=== PATIENT | female | born 1990 ===

== ENCOUNTER 2017-04-29 18:25 | Emergency (ER) | payer BC ==
[2017-04-29 18:43] VITALS: BP 92/71; PULSE 92; RESP 16; TEMP 99.9; O2SAT 97
[2017-04-29] MEDS ORDERED: Lactated Ringer's 1,000 ML IV STA (19:55)
[2017-04-29] MEDS ORDERED: Dextrose 5%/Lactated Ringer's 1,000 ML IV SCH (20:00)
--- NOTE | 2017-04-29 20:27 | ED PDOC ---
HPI: Abdomen Chief Complaint (Provider): Abdominal Pain History Per: Patient History/Exam Limitations: no limitations Onset/Duration Of Symptoms: Days (Ongoing for 2 days) Current Symptoms Are (Timing): Constant Location Of Pain/Discomfort: Epigastric Quality Of Discomfort: Burning Associated Symptoms: Vomiting. denies: Diarrhea, Constipation <Deisy Rockwell - Last Filed: 04/29/17 22:42> <Juan Miguel Thompson - Last Filed: 05/02/17 10:26> Time Seen by Provider: 04/29/17 19:19 Chief Complaint (Nursing): Abdominal Pain Additional Complaint(s): Patient is a 26 y/o female with no past medical history, complaining of epigastric abdominal pain that has been constant and ongoing for 2 days. Patient describes the pain as a burning sensation and notes pain is non radiating. She also reports associated 4 episodes of non-bilious non-bloody vomiting and inability to tolerate food, but denies diarrhea, constipation, and black or bloody stools. Patient also notes having mild reversion of the pain for the last 3 or 4 months, but that it has never been this bad. She claims she has not taken anything for the pain, and admits to drinking heavily this weekend on an empty stomach. Patient also states that she scheduled an appointment and visited her [employer] [employer], Dr. Owens, earlier today who only prescribed blood work and urine tests. She adds that he told her to follow up with her primary care physician, although she does not have one. PMD: none (Deisy Rockwell) Past Medical History Reviewed: Historical Data, Nursing Documentation, Vital Signs - Medical History PMH: No Chronic Diseases - Surgical History Other surgeries: Bilateral breast reduction - Family History Family History: States: No Known Family Hx - Social History Current smoker - smoking cessation education provided: No Ex-Smoker (has not smoked in the last 12 months): No Alcohol: Social Drugs: Denies <Deisy Rockwell - Last Filed: 04/29/17 22:42> <Juan Miguel Thompson - Last Filed: 05/02/17 10:26> Vital Signs: Last Vital Signs Temp 99.9 F H 04/29/17 18:40 Pulse 92 H 04/29/17 18:40 Resp 16 04/29/17 18:40 BP 92/71 L 04/29/17 18:40 Pulse Ox 97 04/29/17 22:45 - Home Medications Home Medications: Ambulatory Orders Medication Instructions Recorded Dicyclomine [Bentyl] 20 mg PO BID PRN #30 tab 04/29/17 Famotidine [Pepcid] 40 mg PO DAILY #30 tab 04/29/17 Ondansetron ODT [Zofran ODT] 1 odt PO Q6 PRN #20 odt 04/29/17 - Allergies Allergies/Adverse Reactions: Allergies Allergy/AdvReac Type Severity Reaction Status Date / Time No Known Allergies Allergy Verified 04/29/17 18:39 Review of Systems ROS Statement: Except As Marked, All Systems Reviewed And Found Negative Gastrointestinal: Positive for: Vomiting, Abdominal Pain (Epigastric). Negative for: Diarrhea, Constipation, Hematochezia <Deisy Rockwell - Last Filed: 04/29/17 22:42> - Laboratory Results Result Diagrams: 04/29/17 20:33 04/29/17 20:33 - ECG O2 Sat by Pulse Oximetry: 97 (RA) Pulse Ox Interpretation: Normal <Deisy Rockwell - Last Filed: 04/29/17 22:42> - Laboratory Results Result Diagrams: 04/29/17 20:33 04/29/17 20:33 <Juan Miguel Thompson - Last Filed: 05/02/17 10:26> Medical Decision Making <Deisy Rockwell - Last Filed: 04/29/17 22:42> <Juan Miguel Thompson E - Last Filed: 05/02/17 10:26> Medical Decision Makin:19 Initial Impression: Epigastric pain Differential include but not limited to: Gastritis, Peptic Ulcer Disease, Pancreatitis, Hepatitis, Gallbladder Disease Initial Plan: --ED Urine --ED Urine Dipstick 19:54 --Labs --Dextrose --Lactated Rigners IV 1,000 mls/hr --Pepcid 40 mg IVP --Zofran Inj 8 mg IV --Urine Culture --IV Insertion --Urinalysis --Abdominal US Labs c/w UTI, otherwise there are no emergently significant lab abnormalities. EXAM: US Abdomen Limited, Right Upper Quadrant EXAM DATE/TIME: Exam ordered 04/29/2017 7:55 PM CLINICAL HISTORY: 26 years old, female; Pain; Abdominal pain; Epigastric; Additional info: Upper abdominal pain and vomiting TECHNIQUE: Real-time ultrasound of the right upper quadrant with image documentation. COMPARISON: No relevant prior studies available. FINDINGS: Liver: The liver is of normal size with no focal defects measuring 13.7 cm. There is hepatopetal portal flow. No intrahepatic bile duct dilation. Gallbladder: The gallbladder demonstrates no stones and no wall thickening measuring 2 mm. There is a negative sono Vasquez's sign. Common bile duct: The CBD measures 3 mm. No stones. No dilation. Pancreas: The pancreas is normal. Right kidney: The right kidney is normal measuring 9.7 cm. No stones. No hydronephrosis. Aorta: The abdominal aorta is of normal size. No aneurysm. Inferior vena cava: The IVC is normal. IMPRESSION: Negative right upper quadrant sonogram. Thank you for allowing us to participate in the care of your patient. Dictated and Authenticated by: Chacho Parks MD 04/29/2017 9:19 PM Eastern Time ([place] & [place]) Pt no longer nauseous but has persistent pain. Gi cocktail ordered. Scribe Attestation: Documented by Michell Grossman, acting as a scribe for Deisy Rockwell MD Provider Scribe Attestation: All medical record entries made by the Scribe were at my direction and personally dictated by me. I have reviewed the chart and agree that the record accurately reflects my personal performance of the history, physical exam, medical decision making, and the department course for this patient. I have also personally directed, reviewed, and agree with the discharge instructions and disposition. (Deisy Rockwell) Disposition Counseled Patient/Family Regarding: Studies Performed, Diagnosis, Need For Followup, Rx Given - Disposition Disposition: Routine/Home Disposition Time: 22:42 <Deisy Rockwell - Last Filed: 04/29/17 22:42> <Juan Miguel Thompson - Last Filed: 05/02/17 10:26> - Clinical Impression Clinical Impression: Abdominal pain - Disposition Referrals: [facility] [Outside] [facility] [Outside] (FOLLOW UP WITH YOUR DOCTOR OR [facility] IN 48 HOURS TO SEE HOW YOU ARE DOING AND FOR FURTHER EVALUATION) Condition: IMPROVED Prescriptions: Dicyclomine [Bentyl] 20 mg PO BID PRN #30 tab PRN Reason: abdominal pain Famotidine [Pepcid] 40 mg PO DAILY #30 tab Ondansetron ODT [Zofran ODT] 1 odt PO Q6 PRN #20 odt PRN Reason: Nausea/Vomiting Instructions: Epigastric Pain (ED) Forms: [facility] (Occitan), [facility] ED School/Work Excuse Addendum <Deisy Rockwell J - Last Filed: 04/29/17 22:42> <Juan Miguel Thompson - Last Filed: 05/02/17 10:26> Addendum: 05/02/17 10:24 Urine culture: +E.coli. Spoke with patient and Rx for Macrobid called into [facility] [phone] ( Juan Miguel Thompson)
[2017-04-29 20:40] LABS: BASO % 0.2 % (0.0-2.0); EOS % 0.5 % (0.0-4.0); HEMATOCRIT 41.6 % (34.0-47.0); LYMPH # 0.6 K/uL (1.0-4.3); LYMPH % 7.8 % (20.0-40.0); MEAN CELL VOLUME 92.9 fl (81.0-99.0); MEAN CORPUSCULAR HEMOGLOBIN 30.4 pg (27.0-31.0); MEAN CORPUSCULAR HGB CONC 32.8 g/dL (33.0-37.0); MEAN PLATELET VOLUME 9.7 fl (7.2-11.7); MONO # 0.2 K/uL (0.0-0.8); MONO % 3.1 % (0.0-10.0); NEUT # 6.5 K/uL (1.8-7.0); NEUT % 88.4 % (50.0-75.0); PLATELET COUNT 178 K/uL (130-400); RED CELL DISTRIBUTION WIDTH 12.5 % (11.5-14.5); WHITE BLOOD COUNT 7.4 K/uL (4.8-10.8)
[2017-04-29 20:48] LABS: ALB/GLOB RATIO 1.2 (1.0-2.1); ALKALINE PHOSPHATASE 58 U/L (38-126); ALT/SGPT 31 U/L (9-52); AST/SGOT 23 U/L (14-36); BILIRUBIN,TOTAL 0.6 mg/dl (0.2-1.3); BLOOD UREA NITROGEN 10 mg/dl (7-17); CALCIUM 8.6 mg/dL (8.4-10.2); CARBON DIOXIDE 25 mmol/L (22-30); CHLORIDE 105 mmol/L (98-107); GFR AFRICAN-AMERICAN > 60; GLUCOSE,RANDOM 100 mg/dL (65-105); LIPASE 90 U/L (23-300); POTASSIUM 3.8 MMOL/L (3.6-5.0); SODIUM 139 mmol/l (132-148); TOTAL PROTEIN 7.6 G/DL (6.3-8.2)
[2017-04-29 21:14] LABS: RBC URINE 8 /hpf (0-3); URINE BACTERIA OCC (<OCC); URINE BILIRUBIN NEGATIVE (NEGATIVE); URINE BLOOD SMALL (NEGATIVE); URINE COLOR YELLOW (YELLOW); URINE GLUCOSE (UA) NEG (Normal); URINE KETONE NEGATIVE (NEGATIVE); URINE LEUKOCYTE ESTERASE TRACE Leu/uL (Negative); URINE PROTEIN NEGATIVE (NEGATIVE); URINE UROBILINOGEN 0.2-1.0 mg/dL (0.2-1.0); WBC URINE 21 /hpf (0-5)
[2017-04-29 21:46] LABS: EOSINOPHIL 1 % (0-7); NEUTROPHIL 86 % (42-75); TOTAL CELLS COUNTED 100
[2017-04-29 21:50] LABS: SPHEROCYTES SLIGHT
[2017-04-29] MEDS ORDERED: Alum-Mag Hydrox-Simethicone Susp (30 mL) PO STA (21:57)
[2017-04-29] MEDS ORDERED: Alum-Mag Hydrox-Simethicone Susp (30 mL) ONE (22:03)
--- NOTE | 2017-04-30 10:44 | US ---
HISTORY: upper abdominal pain and vomiting COMPARISON: None available. TECHNIQUE: Sonographic evaluation of the right upper quadrant of the abdomen. FINDINGS: LIVER: Measures 13.7 cm in length and appears unremarkable. No focal hepatic mass identified. The main portal vein appears patent with normal directional flow. No intrahepatic bile duct dilatation. GALLBLADDER: No gallstones. No gallbladder wall thickening or pericholecystic edema. Negative sonographic Vasquez's sign as assessed by the machine bunch maker. COMMON BILE DUCT: Measures 3 mm. PANCREAS: Not well-visualized. RIGHT KIDNEY: Measures 9.7 x 5.3 x 4.2 cm. No obstructing calculus or hydronephrosis. AORTA: Limited visualization appears grossly unremarkable. IVC: Limited visualization appears grossly unremarkable. OTHER FINDINGS: None . IMPRESSION: No acute findings identified as above. Preliminary impression was provided by virtual radiologic.
== END 2017-04-29 23:02 | disposition home or self-care (01) ==
LOC: H.ER 18:25
DX: R10.13 Epigastric pain (principal); Z87.891 Personal history of nicotine dependence
CPT/HCPCS: 76705; 80053; 81003; 81025; 83690; 85025; 87086; 96361; 96374; 96375; 99282; J2405; J7120